=== PATIENT | female | born 1935 | race Caucasian/White ===

== ENCOUNTER → 2016-03-18 | Outpatient (CLI) | payer MEDICARE, BC ==
[2016-03-18 13:47] LABS: HEMATOCRIT 38.7 % (36.0-47.0); HEMOGLOBIN 12.5 g/dL (12.0-15.5); HGB HCT DIFFERENCE -1.2; MEAN CORPUSCULAR HEMOGLOBIN 35.2 pg (27.0-33.4); MEAN CORPUSCULAR HGB CONC 32.3 g/dL (32.0-36.0); MEAN CORPUSCULAR VOLUME 109 fl (80-97); RED BLOOD COUNT 3.56 10^6/uL (3.72-5.28); RED CELL DISTRIBUTION WIDTH 13.2 % (11.5-14.0); WHITE BLOOD COUNT 6.2 10^3/uL (4.0-10.5)
[2016-03-18 14:02] LABS: ALANINE AMINOTRANSFERASE 26 U/L (9-52); ALBUMIN 4.5 g/dL (3.5-5.0); ALKALINE PHOSPHATASE 86 U/L (38-126); ANION GAP 13 (5-19); ASPARTATE AMINO TRANSFERASE 19 U/L (14-36); BLOOD UREA NITROGEN 27 mg/dL (7-20); CALCIUM 9.8 mg/dL (8.4-10.2); CARBON DIOXIDE 23 mmol/L (22-30); CHLORIDE 109 mmol/L (98-107); CHOLESTEROL 199.34 mg/dL (0-200); CREATININE RESULT 0.99 mg/dL (0.52-1.25); Direct HDL 58 mg/dL (>40); GLUCOSE 88 mg/dL (75-110); MAGNESIUM 1.7 mg/dL (1.6-2.3); POTASSIUM 4.5 mmol/L (3.6-5.0); SODIUM 144.8 mmol/L (137-145); TRIGLYCERIDES 156 mg/dL (<150)
[2016-03-18 14:13] LABS: DIRECT LDL 112 mg/dL (<100)
[2016-03-18 14:27] LABS: VLDL CHOLESTEROL 31.2 mg/dL (10-31)
== END ==
LOC: OD 12:25
PROVIDERS: ATTEND Nurse Practitioner
DX: I10 Essential (primary) hypertension (principal); E78.5 Hyperlipidemia, unspecified; E55.9 Vitamin D deficiency, unspecified; R53.83 Other fatigue; Z79.899 Other long term (current) drug therapy
CPT/HCPCS: 36415; 80053; 80061; 82306; 83735; 84443; 85027

== ENCOUNTER → 2016-03-21 | Outpatient (CLI) | payer MEDICARE, BC | LOC: RAD 12:08 | PROVIDERS: ATTEND Nurse Practitioner | DX: R41.3 Other amnesia (principal); Z91.81 History of falling | CPT/HCPCS: 70450 ==

== ENCOUNTER → 2016-06-29 | Outpatient (CLI) | payer MEDICARE, BC ==
[2016-06-30 11:31] LABS: ALANINE AMINOTRANSFERASE 29 U/L (9-52); ALBUMIN 4.4 g/dL (3.5-5.0); ALKALINE PHOSPHATASE 85 U/L (38-126); ANION GAP 13 (5-19); ASPARTATE AMINO TRANSFERASE 21 U/L (14-36); BILIRUBIN,DIRECT 0.5 mg/dL (0.0-0.4); BLOOD UREA NITROGEN 24 mg/dL (7-20); CALCIUM 9.8 mg/dL (8.4-10.2); CARBON DIOXIDE 23 mmol/L (22-30); CHLORIDE 108 mmol/L (98-107); CREATININE RESULT 1.05 mg/dL (0.52-1.25); GLUCOSE 115 mg/dL (75-110); POTASSIUM 4.6 mmol/L (3.6-5.0); SODIUM 144.1 mmol/L (137-145); TOTAL PROTEIN 7.4 g/dL (6.3-8.2)
== END ==
LOC: OD 16:20
PROVIDERS: ATTEND Nurse Practitioner
DX: I10 Essential (primary) hypertension (principal); E78.2 Mixed hyperlipidemia; E55.9 Vitamin D deficiency, unspecified; Z79.899 Other long term (current) drug therapy
CPT/HCPCS: 36415; 80053; 82306

== ENCOUNTER → 2016-07-28 | Outpatient (CLI) | payer MEDICARE, BC ==
--- NOTE | 2016-07-29 08:38 | RADIOLOGY REPORT (SQ) ---
EXAM DESCRIPTION: MRI HEAD WITHOUT COMPLETED DATE/TIME: 07/28/2016 5:57 pm REASON FOR STUDY: DIZZINESS AND GIDDINESS R42 DIZZINESS AND GIDDINESS COMPARISON: None. TECHNIQUE: Multiplanar imaging includes non-contrasted T1, T2, FLAIR, and diffusion with ADC map seq uences. Images stored on PACS. LIMITATIONS: None. FINDINGS: ANATOMY: No anomalies. Normal vascular flow voids. Pituitary fossa normal. CSF SPACES: Normal in size and contour. No hemorrhage. CEREBRUM: Sulci and gyri normal in size and contour. Minimal spotty increased bifrontal and bipariet al white matter signal on FLAIR imaging from small vessel disease, age-appropriate. No evidence of h emorrhage, mass, or extraaxial fluid collection. POSTERIOR FOSSA: No signal alteration. No hemorrhage. No edema, masses or mass effect. Internal esha tory canals, cerebello-pontine angles, mastoids normal. DIFFUSION IMAGING: Negative for acute or sub-acute infarction. ORBITS: No masses. Globes normal. PARANASAL SINUSES: No fluid levels. Mucosa normal. OTHER: No other significant finding. IMPRESSION: ESSENTIALLY NORMAL MRI OF THE BRAIN WITHOUT INTRAVENOUS GADOLINIUM CONTRAST. TECHNICAL DOCUMENTATION: JOB ID: [id number] [employer]- All Rights Reserved
== END ==
LOC: RAD 16:13
PROVIDERS: ATTEND Nurse Practitioner
DX: R47.81 Slurred speech (principal); R20.9 Unspecified disturbances of skin sensation; R42 Dizziness and giddiness; H53.9 Unspecified visual disturbance
CPT/HCPCS: 70551

== ENCOUNTER 2017-01-25 14:46 | Emergency (ER) | payer MEDICARE, BC ==
--- NOTE | 2017-01-25 15:58 | ER Document Report ---
ED Medical Screen (RME) - General Chief Complaint: Skin Problem Stated Complaint: SKIN PROBLEM Time Seen by Provider: 01/25/17 15:55 Mode of Arrival: Ambulatory Information source: Patient Notes: Patient states she was supposed to have an epidural this afternoon for chronic back pain and whenever Dr. Bain noticed her elbow he wanted her sent here for evaluation of a septic elbow joint. Patient states that she has been using her arms more to help move about because of her back pain. Patient denies any fever. Patient denies any history of diabetes although review of patient's medication list and problem list does demonstrate she has a history of diabetes. TRAVEL OUTSIDE OF THE [place] IN LAST 30 DAYS: No - Related Data Allergies/Adverse Reactions: Penicillins Allergy (Verified 04/03/14 10:26) procaine HCl [From Novocain] Allergy (Verified 04/03/14 10:26) Past Medical History - Past Medical History Cardiac Medical History: Reports: Hx Hypercholesterolemia, Hx Hypertension Pulmonary Medical History: Reports: Hx Bronchitis, Hx COPD Neurological Medical History: Denies: Hx Seizures Musculoskeltal Medical History: Reports Hx Arthritis Past Surgical History: Reports: Hx Appendectomy, Hx Cholecystectomy, Hx Hysterectomy, Hx Orthopedic Surgery - Back surgery, foot surgery, 2 fingers reattached., Hx Tonsillectomy - Immunizations Hx Diphtheria, Pertussis, Tetanus Vaccination: Yes Physical Exam - Vital signs Vitals: Temp Pulse Resp BP Pulse Ox 98.3 F 66 20 152/88 H 98 01/25/17 15:17 01/25/17 15:17 01/25/17 15:17 01/25/17 15:17 01/25/17 15:17 - Extremities General upper extremity: Tender - Left elbow tenderness with overlying erythema that extends down her left forearm. Patient with pustular skin lesion overlying olecranon process Course - Vital Signs Vital signs: Temp Pulse Resp BP Pulse Ox 98.3 F 66 20 152/88 H 98 01/25/17 15:17 01/25/17 15:17 01/25/17 15:17 01/25/17 15:17 01/25/17 15:17
[2017-01-25 16:27] LABS: ABSOLUTE BASOPHILS # (AUTO) 0.1 10^3/uL (0.0-0.2); ABSOLUTE EOSINOPHILS # (AUTO) 0.1 10^3/uL (0.0-0.6); ABSOLUTE MONOCYTES (AUTO) 0.7 10^3/uL (0.1-1.4); ABSOLUTE NEUT (AUTO) 10.1 10^3/uL (1.7-8.2); BASOPHILS % (AUTO) 0.6 % (0-2); HEMOGLOBIN 13.3 g/dL (12.0-15.5); HGB HCT DIFFERENCE 1.9; LYMPHOCYTES % (AUTO) 15.1 % (13-45); MEAN CORPUSCULAR HGB CONC 35.1 g/dL (32.0-36.0); MEAN CORPUSCULAR VOLUME 108 fl (80-97); MONOCYTES % (AUTO) 5.6 % (3-13); RED CELL DISTRIBUTION WIDTH 13.6 % (11.5-14.0); SEGMENTED NEUTROPHILS % (AUTO) 77.7 % (42-78)
[2017-01-25 16:47] LABS: ALANINE AMINOTRANSFERASE 35 U/L (9-52); ALBUMIN 4.2 g/dL (3.5-5.0); ALKALINE PHOSPHATASE 102 U/L (38-126); ANION GAP 15 (5-19); ASPARTATE AMINO TRANSFERASE 18 U/L (14-36); BILIRUBIN,DIRECT 0.5 mg/dL (0.0-0.4); BILIRUBIN,TOTAL 1.1 mg/dL (0.2-1.3); BLOOD UREA NITROGEN 23 mg/dL (7-20); CALCIUM 9.7 mg/dL (8.4-10.2); CARBON DIOXIDE 24 mmol/L (22-30); CHLORIDE 103 mmol/L (98-107); CREATININE RESULT 0.97 mg/dL (0.52-1.25); GLUCOSE 114 mg/dL (75-110); POTASSIUM 4.2 mmol/L (3.6-5.0); SODIUM 141.5 mmol/L (137-145); TOTAL PROTEIN 6.9 g/dL (6.3-8.2)
--- NOTE | 2017-01-25 16:47 | RADIOLOGY REPORT (SQ) ---
EXAM DESCRIPTION: ELBOW LEFT OVER 2 VIEWS COMPLETED DATE/TIME: 01/25/2017 4:25 pm REASON FOR STUDY: elbow infection COMPARISON: None. NUMBER OF VIEWS: Four views. TECHNIQUE: AP, lateral, and both oblique radiographic images acquired of the left elbow. LIMITATIONS: None. FINDINGS: MINERALIZATION: Normal. BONES: No acute fracture or dislocation. There is no plain film evidence for bony involvement by ost eomyelitis. JOINT: Periarticular calcific densities are identified which may be within the joint capsule. The po ssibility of synovial osteochondromatosis should be considered. In the lateral projection there appe ars to be subluxation of the radial head in relation to the capitellum. SOFT TISSUES: No foreign body is identified. No subcutaneous gas collections are identified. OTHER: No other significant finding. IMPRESSION: No acute fracture or dislocation. No plain film evidence for bony involvement by osteom yelitis. Other findings as noted above TECHNICAL DOCUMENTATION: JOB ID: [id number] [employer]- All Rights Reserved
[2017-01-25] MEDS ORDERED: CEPHALEXIN 500 MG CAPSULE PO ONE (19:03)
--- NOTE | 2017-01-25 19:04 | ER Document Report ---
ED General - General Chief Complaint: Skin Problem Stated Complaint: SKIN PROBLEM Time Seen by Provider: 01/25/17 15:55 Mode of Arrival: Ambulatory Notes: Patient is an 81-year-old female who presents with concerns of infection over her left elbow. She was seen in pain management today for consideration of a local hip injection but after they noted the swelling and erythema around her right elbow they sent her to the emergency department for further evaluation. Patient states that she believes that this area become red and irritated as she has been pushing herself up in her bed using her elbows. She denies any significant pain to the area. She also denies any difficulty with range of motion of the left elbow. No pain with range of motion of the elbow. She has not had any fever or constitutional symptoms. She does note that she is noted spreading redness to the area over the last several days. She denies any history of similar symptoms in the past. TRAVEL OUTSIDE OF THE [place] IN LAST 30 DAYS: No - Related Data Allergies/Adverse Reactions: Penicillins Allergy (Verified 04/03/14 10:26) procaine HCl [From Novocain] Allergy (Verified 04/03/14 10:26) Past Medical History - General Information source: Patient - Social History Smoking Status: Never Smoker Chew tobacco use (# tins/day): No Frequency of alcohol use: Occasional Drug Abuse: None Lives with: Family Family History: Reviewed & Not Pertinent Patient has suicidal ideation: No Patient has homicidal ideation: No - Past Medical History Cardiac Medical History: Reports: Hx Hypercholesterolemia, Hx Hypertension Pulmonary Medical History: Reports: Hx Bronchitis, Hx COPD Neurological Medical History: Denies: Hx Seizures Renal/ Medical History: Denies: Hx Peritoneal Dialysis Musculoskeltal Medical History: Reports Hx Arthritis Past Surgical History: Reports: Hx Appendectomy, Hx Cholecystectomy, Hx Hysterectomy, Hx Orthopedic Surgery - Back surgery, foot surgery, 2 fingers reattached., Hx Tonsillectomy - Immunizations Hx Diphtheria, Pertussis, Tetanus Vaccination: Yes Review of Systems - Review of Systems Notes: Constitutional: Negative for fever. HENT: Negative for sore throat. Eyes: Negative for visual changes. Cardiovascular: Negative for chest pain. Respiratory: Negative for shortness of breath. Gastrointestinal: Negative for abdominal pain, vomiting or diarrhea. Genitourinary: Negative for dysuria. Musculoskeletal:positive for left elbow swelling Skin: Positive for rash. Neurological: Negative for headaches, weakness or numbness. 10 point ROS negative except as marked above and in HPI. Physical Exam - Vital signs Vitals: Temp Pulse Resp BP Pulse Ox 98.3 F 66 20 152/88 H 98 01/25/17 15:17 01/25/17 15:17 01/25/17 15:17 01/25/17 15:17 01/25/17 15:17 Interpretation: Hypertensive Notes: PHYSICAL EXAMINATION: GENERAL: Well-appearing, well-nourished and in no acute distress. HEAD: Atraumatic, normocephalic. EYES: Pupils equal round and reactive to light, extraocular movements intact, sclera anicteric, conjunctiva are normal. ENT: nares patent, oropharynx clear without exudates. Moist mucous membranes. NECK: Normal range of motion, supple without lymphadenopathy LUNGS: Breath sounds clear to auscultation bilaterally and equal. No wheezes rales or rhonchi. HEART: Regular rate and rhythm without murmurs ABDOMEN: Soft, nontender, normoactive bowel sounds. No guarding, no rebound. No masses appreciated. EXTREMITIES: Normal range of motion, with full flexion at the left elbow. No pain with range of motion. There is mild swelling over the olecranon. NEUROLOGICAL: No focal neurological deficits. Moves all extremities spontaneously and on command. PSYCH: Normal mood, normal affect. SKIN: Warm, Dry, normal turgor, there is an area of erythema extending from a superficial abrasion at the level of the olecranon approximately over a 3 x 4 cm area surrounding the elbow and asked up to the forearm Course - Re-evaluation Re-evalutation: 01/25/17 19:01 Patient presents with a 3 x 4 cm area of cellulitis starting from the olecranon of the left elbow extending over the forearm. It appears the patient has had a minor skin avulsion to the area likely secondary to applying direct pressure to the area when she is trying to adjust herself in her bed. Patient does not meet sepsis criteria. Her vitals are within normal limits at time of presentation. She has a mild white count at 13 which is not clinically surprising given the area of cellulitis. I do not all suspect a septic joint as patient has full range of motion with the elbow without any discomfort whatsoever. She actually helps proper self up in bed when I walked into the room using her forearm and elbow. She is laughing and joking with me during exam and does not appear clinically ill. Will be started on coverage for cellulitis using cephalexin. A dose has been given here in the emergency department. At this time will discharge with return precautions and follow-up recommendations. Verbal discharge instructions given a the bedside and opportunity for questions given. Medication warnings reviewed. Patient is in agreement with this plan and has verbalized understanding of return precautions and the need for primary care follow-up in the next 24-72 hours. - Vital Signs Vital signs: Temp Pulse Resp BP Pulse Ox 97.9 F 68 20 122/83 96 01/25/17 19:13 01/25/17 19:13 01/25/17 15:19 01/25/17 19:13 01/25/17 19:13 - Laboratory Result Diagrams: 01/25/17 16:13 01/25/17 16:13 Laboratory results interpreted by me: 01/25/17 01/25/17 16:13 16:13 WBC 13.0 H RBC 3.50 L MCV 108 H MCH 38.0 H Absolute Neutrophils 10.1 H BUN 23 H Est GFR (Non-Af Amer) 55 L Glucose 114 H Direct Bilirubin 0.5 H - Diagnostic Test Radiology reviewed: Image reviewed, Reports reviewed Radiology results interpreted by me: 01/26/17 04:08 Left elbow: No acute fracture Discharge - Discharge Clinical Impression: Cellulitis of arm, left Condition: Good Disposition: HOME, SELF-CARE Additional Instructions: The rash is likely due to infection of your skin. You need to take the antibiotics as prescribed. Do not stop even if the rash goes away until you have completed all the antibiotics. The area of redness was traced out here in the emergency department with a marking pen. You need to return to emergency department if the redness spreads outside of this area by more than 2 cm in any direction. You should also return if you develop fevers with temperature greater than 101, persistent vomiting, worsening pain, or have any other symptoms that are concerning to you. Prescriptions: Cephalexin Monohydrate [Keflex 500 mg Capsule] 500 mg PO Q6H 7 Days capsule
[2017-01-25 19:16] VITALS: BP 122/83
== END 2017-01-25 19:16 | disposition home or self-care (01) ==
LOC: ER 14:46
DX: S50.319A Abrasion of unspecified elbow, initial encounter (principal); L03.114 Cellulitis of left upper limb; X58.XXXA Exposure to other specified factors, initial encounter; I10 Essential (primary) hypertension; J44.9 Chronic obstructive pulmonary disease, unspecified; Z88.0 Allergy status to penicillin; Z88.4 Allergy status to anesthetic agent
CPT/HCPCS: 99283; 36415; 87040; 85025; 80053; 73080; A9270

== ENCOUNTER → 2017-03-25 | Outpatient (CLI) | payer MEDICARE, BC ==
--- NOTE | 2017-03-25 14:23 | RADIOLOGY REPORT (SQ) ---
EXAM DESCRIPTION: MRILLJ WO COMPLETED DATE/TIME: 03/25/2017 11:31 am REASON FOR STUDY: PAIN IN LEFT HIP COMPARISON: None. TECHNIQUE: Noncontrast multiplanar MR imaging. Sequences include wide field of view pelvis and focu sed hip of interest. Fat sensitive, water sensitive, and cartilage sensitive sequences. Specific hip of interest: Left LIMITATIONS: None. FINDINGS: MARROW SIGNAL: No evidence of replacement or occult fracture. No suspicious lesion apprec iated. SPECIFIC HIP OF INTEREST: No joint effusion. No evidence of significant subchondral cyst formation or bulky osteophytes. Symmetric hip joint space, relatively preserved. No evidence of AVN. Mild fl uid along the gluteus minimus and medius trochanteric insertions. Generalized gluteal atrophy. Gene rally symmetric appearance, also suggested on the right. OPPOSITE HIP: Similar changes to the left hip. No large effusion or joint space significant loss. M ild fluid along the gluteal insertions. REMAINDER OF THE OSSEOUS PELVIS: SI joints normal. Symphasis pubis intact. No Avulsion injury evide nt. INTRA- AND EXTRAPELVIC SOFT TISSUES: No intrapelvic mass or free fluid. Bladder normal. No extrapelv ic mass. No inguinal hernia or adenopathy. 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 No evidenc e of hip fracture, bone lesion. Relative maintenance of hip joint spaces.
== END ==
LOC: RAD 10:11
PROVIDERS: ATTEND Physician Assistant
DX: M25.552 Pain in left hip (principal)